=== PATIENT | male | born 1950 | race African-American/Black ===

== ENCOUNTER 2022-04-21 11:52 | Emergency (ER) | payer OTHER ==
[2022-04-21 13:14] VITALS: PULSE 99; BMI 29.7
[2022-04-21] MEDS ORDERED: amLODIPine BESYLATE 10 MG TABLET (FP) PO ONE (13:38)
[2022-04-21] MEDS ORDERED: HALOPERIDOL LACTATE 5 MG/ML IM ONE (13:38)
[2022-04-21] MEDS ORDERED: HALOPERIDOL LACTATE 5 MG/ML ONE (14:02)
[2022-04-21] MEDS ORDERED: amLODIPine BESYLATE 10 MG TABLET (FP) ONE (14:14)
[2022-04-21 15:20] LABS: BASO % 0.5 % (0-2.0); HEMATOCRIT 45.3 % (35.4-49); HEMOGLOBIN 15.1 GM/dL (11.7-16.9); LYMPH % 21.5 % (8-40); MCH 29.4 pg (25.7-33.7); MCHC 33.3 g/dl (32.0-35.9); MEAN CELL VOLUME 88.3 fl (80-96); MEAN PLT VOLUME 8.5 fl (7.5-11.1); MONO % 10.2 % (3.8-10.2); NEUT % 66.8 % (42.8-82.8); PLATELET COUNT 206 10^3/uL (134-434); RBC 5.13 M/mm3 (4.00-5.60); RDW 13.2 % (11.9-15.9)
[2022-04-21 15:23] LABS: ALBUMIN 3.9 g/dl (3.4-5.0); BLOOD UREA NITROGEN 14.5 mg/dL (7-18); CALCIUM 8.8 mg/dL (8.5-10.1)
[2022-04-21 15:26] LABS: CREATININE 0.9 mg/dL (0.55-1.3)
[2022-04-21 15:28] LABS: BILIRUBIN,TOTAL 0.3 mg/dL (0.2-1); TOT PROT 7.8 g/dl (6.4-8.2)
[2022-04-21 16:33] VITALS: BP 186/106; TEMP 97.7
== END 2022-04-21 19:02 | disposition short-term general hospital (02) ==
LOC: JER 11:52
PROC: 3E023GC Introduction of Other Therapeutic Substance into Muscle, Percutaneous Approach (ICD-10-PCS; principal; 2022-04-21)
DX: F20.9 Schizophrenia, unspecified (principal); I10 Essential (primary) hypertension
CPT/HCPCS: 36415; 71045-TC-FY; 80053; 84484; 85025; 93005; 93010; 99285-25